=== PATIENT | female | born 1980 | race Caucasian/White ===

== ENCOUNTER 2018-08-21 17:47 | Emergency (ER) | payer BC ==
[2018-08-21 18:05] VITALS: BP 118/76
--- NOTE | 2018-08-21 18:22 | UC ---
Throat Pain/Nasal Alvaro HPI - HPI Summary HPI Summary: 37 year old woman comes in to clinic today with a chief complaint of runny nose sore throat cough chest congestion yellow sputum that's blood tinged and fevers. She's had some [id number] medicines that help somewhat but overall she's getting worse. Today she started having blood-tinged sputum. She has had wheezing and has a history of getting bronchospasm when she gets upper respiratory tract infections. - History of Current Complaint Chief Complaint: UCGeneralIllness Stated Complaint: CHEST CONGESTION, AND COUGH Time Seen by Provider: 08/21/18 18:10 Hx Last Menstrual Period: 07/30 Pain Intensity: 3 - Allergies/Home Medications Allergies/Adverse Reactions: Allergies Allergy/AdvReac Type Severity Reaction Status Date / Time metoclopramide [From Reglan] AdvReac Severe psychosis Verified 08/21/18 18:05 prochlorperazine AdvReac Severe psychosis Verified 08/21/18 18:05 [From Compazine] Home Medications: Home Medications Colchicine* [Colcrys*] 0.6 mg PO DAILY 08/21/18 [History Confirmed 08/21/18] Dm/Acetaminophen/Doxylamine [Cold-Flu Relief Liquid] 296 ml PO 08/21/18 [History ] PMH/Surg Hx/FS Hx/Imm Hx Previously Healthy: Yes - Surgical History Surgical History: Yes Surgery Procedure, Year, and Place: tonsillectomy 1998. breast reduction 2002. ACL repair 2006. labral tear 2008. inguinal hernia L 2011 - Family History Known Family History: Positive: Non-Contributory - Social History Alcohol Use: Weekly Substance Use Type: None Smoking Status (MU): Former Smoker Review of Systems All Other Systems Reviewed And Are Negative: Yes Constitutional: Positive: Fever, Chills Skin: Positive: Negative Eyes: Positive: Negative ENT: Positive: Sore Throat, Ear Ache, Nasal Discharge, Sinus Congestion, Sinus Pain/Tenderness Respiratory: Positive: Cough, Other - wheezing Cardiovascular: Positive: Negative Gastrointestinal: Positive: Negative Motor: Positive: Negative Neurovascular: Positive: Negative Musculoskeletal: Positive: Negative Neurological: Positive: Negative Psychological: Positive: Negative Is Patient Immunocompromised?: No Physical Exam Triage Information Reviewed: Yes Appearance: No Pain Distress, Well-Nourished, Ill-Appearing - mild Vital Signs: Initial Vital Signs Temp 99 F 08/21/18 18:01 Pulse 89 12/08/18 18:01 Resp 16 08/21/18 18:01 BP 118/76 08/21/18 18:01 Pulse Ox 100 08/21/18 18:01 Vital Signs Reviewed: Yes Eye Exam: Normal Eyes: Positive: Conjunctiva Clear ENT: Positive: Nasal congestion, Nasal drainage, TM dull Neck exam: Normal Neck: Positive: Supple Respiratory: Positive: Wheezing, Other: - Patient should with a photograph of her expectorant which was yellow and blood-tinged. Cardiovascular: Positive: RRR Musculoskeletal Exam: Normal Musculoskeletal: Positive: Strength Intact, ROM Intact Neurological Exam: Normal Neurological: Positive: Alert, Muscle Tone Normal Psychological Exam: Normal Psychological: Positive: Age Appropriate Behavior Skin Exam: Normal Throat Pain/Nasal Course/Dx - Course Course Of Treatment: A rapid influenza was negative. Due to the blood tinged yellow sputum I will treat with antibiotics. Also given a prescription for albuterol for the bronchospasm. Use [id number] medications for symptomatic relief. Patient she get rechecked if she worsens or has any other questions or concerns. - Differential Dx/Diagnosis Provider Diagnosis: Bronchitis with bronchospasm Discharge - Sign-Out/Discharge Documenting (check all that apply): Patient Departure All imaging exams completed and their final reports reviewed: No Studies - Discharge Plan Condition: Stable Disposition: HOME Prescriptions: Albuterol HFA INHALER* [Ventolin HFA Inhaler*] 2 puff INH Q4H PRN #1 mdi PRN Reason: Wheezing Azithromyxin KINGA (NF) [Z-Kinga (Zithromax) 250 mg tabs #6] 2 tab PO .TODAY, THEN 1 DAILY #6 tab Benzonatate CAP* [Tessalon 100 MG CAP*] 100 mg PO TID PRN #20 cap PRN Reason: Cough Patient Education Materials: Acute Bronchitis (ED), Bronchospasm (ED) Referrals: [facility] [Outside] Additional Instructions: FOLLOW UP WITH YOUR DOCTOR IF NOT COMPLETELY IMPROVED. GET RECHECKED FOR ANY WORSENING OF YOUR CONDITION OR QUESTIONS OR CONCERNS. - Billing Disposition and Condition Condition: STABLE Disposition: Home
== END 2018-08-21 18:40 | disposition home or self-care (01) ==
LOC: UCEAST 17:47
DX: J20.9 Acute bronchitis, unspecified (principal); R09.89 Other specified symptoms and signs involving the circulatory and respiratory systems; Z88.8 Allergy status to other drugs, medicaments and biological substances; Z87.891 Personal history of nicotine dependence
CPT/HCPCS: 99202; G0463